=== PATIENT | female | born 1975 | race Caucasian/White ===

== ENCOUNTER → 2024-09-11 13:57 | Outpatient (CLI) | payer MEDICARE, MEDICAID, SELFPAY ==
[2024-09-11 14:54] LABS: Influenza A - CEPHEID Flu A NEGATIVE (NEGATIVE); Influenza B - CEPHEID Flu B NEGATIVE (NEGATIVE); Respiratory Syncytial Virus Negative (Negative)
[2024-09-11 15:11] LABS: COVID-19 CEPHEID 4-PLEX PCR Negative (Negative)
== END ==
PROVIDERS: Visit Provider Nurse Practitioner Family
DX: R05.1 Acute cough (principal); J02.9 Acute pharyngitis, unspecified
CPT/HCPCS: 0241U; 87070

== ENCOUNTER → 2024-09-11 14:14 | Outpatient (CLI) | payer MEDICARE, MEDICAID, SELFPAY ==
--- NOTE | 2024-09-11 14:17 | DI.RAD.S_ITS ---
PROCEDURE: XR CHEST 2V INDICATIONS: Cough TECHNIQUE: 2 views of the chest were acquired. COMPARISON: None. FINDINGS: Surgical changes and devices: None. Lungs and pleura: Lungs are clear. No pleural effusions or pneumothorax. Mediastinum: Mediastinal contours are normal. Heart size is normal. Bones and chest wall: No suspicious bony abnormalities. Soft tissues appear unremarkable. IMPRESSION: No acute cardiopulmonary abnormality is seen. Dictated by: Andrews Etienne M.D. on 09/12/2024 at 17:08 Approved by: Andrews Etienne M.D. on 09/12/2024 at 17:09
== END ==
PROVIDERS: Referring Provider Nurse Practitioner Family; Visit Provider Nurse Practitioner Family
DX: R05.9 Cough, unspecified (principal); R05.1 Acute cough; J02.9 Acute pharyngitis, unspecified
CPT/HCPCS: 0241U; 71046; 87070; 87077; 87147

== ENCOUNTER 2024-11-19 18:58 | Emergency (ER) | payer MEDICARE, MEDICAID, SELFPAY ==
[2024-11-19 19:25] VITALS: BP 132/82; PULSE 87; RESP 17; TEMP 37.1; O2SAT 98; BMI 29.4
[2024-11-19 21:13] LABS: Add Manual Diff / Slide Review NO; Hematocrit 40.1 % (36-46); Hemoglobin 14.0 g/dL (12.0-16.0); Lymphocytes Absolute Auto 2000 /uL (1100-4500); Mean Corpuscular HGB Conc 34.9 % (30-36); Mean Corpuscular Hemoglobin 33.6 PG (26-34); Mean Corpuscular Volume 96.3 fL (80-100); Platelet Count 279 X10^3/uL (150-400)
== END 2024-11-19 21:12 | disposition left against medical advice (07) ==
PROVIDERS: Emergency Provider Emergency Medicine
DX: R10.12 Left upper quadrant pain (principal); Z98.84 Bariatric surgery status
CPT/HCPCS: 85025; 99281

== ENCOUNTER 2024-11-20 08:52 | Emergency (ER) | payer MEDICARE, MEDICAID, SELFPAY ==
[2024-11-20] VITALS (9 sets, daily range): BP systolic 103–124; BP diastolic 58–83; PULSE 56–93; RESP 18; TEMP 36.6; O2SAT 92–99; BMI 29.7
--- NOTE | 2024-11-20 09:22 | DI.CT.S_ITS ---
PROCEDURE: CT ABDOMEN PELVIS W CON INDICATIONS: Left upper quadrant pain, gastric bypass Ronni, 60 lb wt loss TECHNIQUE: After the administration of intravenous contrast, axial sections acquired from the lung bases to the pubic symphysis. Coronal and sagittal reformats were performed. For radiation dose reduction, the following was used: automated exposure control, adjustment of mA and/or kV according to patient size. COMPARISON: None. FINDINGS: Image quality: Diagnostic. Lower Chest: No significant findings. ABDOMEN: Liver: No solid mass. Gallbladder: No radiopaque gallstones or wall thickening. Biliary ducts: No biliary dilation. Pancreas: No ductal dilation. Spleen: Size is within normal limits. Adrenal Glands: No adrenal nodules. Kidneys and Ureters: No hydronephrosis. No solid mass. No complex renal cystic lesion which requires follow up. Stomach and Bowel: Prior gastric surgery Peritoneum: No abnormal intraperitoneal fluid. No free air. Ventral Wall: No significant ventral hernia. Abdominal Nodes: No retroperitoneal or mesenteric adenopathy by size criteria. Vessels: Aorta and inferior vena cava are normal in size. PELVIS: Pelvic Organs: Unremarkable. Bladder: No bladder wall thickening, accounting for underdistention. Pelvic Nodes: No enlarged lymph nodes. Miscellaneous: Left inguinal hernia contains fat bowel involvement Bones: Degenerative disc disease and arthropathy noted in lower lumbar spine. IMPRESSION: No acute CT findings in the abdomen and pelvis status post gastric surgery. Incidental left inguinal hernia contains fat without bowel involvement Approved by: Poli Alvarado M.D. on 11/20/2024 at 9:44
--- NOTE | 2024-11-20 09:24 | ED.GENADULT ---
HPI - General Adult General Chief complaint: Abdominal Pain Stated complaint: Lower left side stomach pain Time Seen by Provider: 11/20/24 09:16 Source: patient Mode of arrival: Family Vehicle History of Present Illness HPI narrative: 49-year-old woman with a history of asthma, underwent gastric bypass in April is lost about 60 lb experiences chronic nausea and over the last week she has been having increasing left upper abdominal pain. She can not specifically localize it she has not had any change to her bowel habits. She is having enough nausea that she is having trouble keeping her protein shakes down. The pain is in the left upper quadrant when it happens she has difficulty finding a comfortable position and this morning is not abating describes pain as a 6/10. No change to her chronic nausea and she has not vomited. No fevers, cough, chills, chest pain or palpitation Related Data Home Medications ?Medication ?Instructions ?Recorded ?Confirmed albuterol sulfate 90 mcg/actuation inhalation 09/11/24 09/11/24 aerosol inhaler blood sugar diagnostic (OneTouch #10 ea 09/11/24 09/11/24 Verio test strips) fluticasone propionate 50 spray intranasal 09/11/24 09/11/24 mcg/actuation nasal spray,suspension gabapentin 300 mg capsule 300 mg PO 3XD 09/11/24 09/11/24 omeprazole 20 mg capsule,delayed 20 mg PO QAM 09/11/24 09/11/24 release ursodiol 250 mg tablet 250 mg PO BID 09/11/24 09/11/24 Previous Rx's ?Medication ?Instructions ?Recorded benzonatate 200 mg capsule 200 mg PO BID PRN cough #28 caps 09/11/24 amoxicillin 500 mg capsule 500 mg PO BID #20 caps 09/13/24 Allergies Allergy/AdvReac Type Severity Reaction Status Date / Time No Known Drug Allergies Allergy Verified 11/20/24 09:18 Review of Systems Review of Systems Narrative: Pertinent positive and negative findings as per HPI Patient History Surgical History (Updated 11/20/24 @ 09:26 by Tonya Holley MD) History of gastric bypass Social History Smoking Status: Former smoker Smoking Status: Former smoker tobacco type: cigarettes Alcohol type: wine Exam Initial Vital Signs Initial Vital Signs: Vital Signs Temperature 97.8 F 11/20/24 09:17 Pulse Rate 62 11/20/24 09:17 Respiratory Rate 18 11/20/24 09:17 Blood Pressure 119/83 11/20/24 09:17 Pulse Oximetry 99 11/20/24 09:17 Oxygen Delivery Method Room Air 11/20/24 09:17 General: Healthy appearing, uncomfortable but Able to give a complete and coherent history. Well-nourished well-developed HEENT: Moist mucous membranes, normal sclera with reactive pupils, Respiratory: Full and symmetrical air movement Cardiac: Regular rate and rhythm no murmurs no bruits Abdomen: Soft, tenderness in the left upper quadrant without rebound or guarding. No skin changes, no flank pain Skin: Warm and dry, no rashes Neurologic: Grossly neurologically intact with no obvious asymmetries or abnormalities Extremities: No trauma, well perfused Psych: Cooperative, appropriate insight and affect Course Orders Ordered: ED Orders 11/20/24 09:22 CT abdomen pelvis w con Stat EKG-12 Lead Stat 11/20/24 09:55 Complete Blood Count AUTO DIFF Stat Comprehensive Metabolic Panel Stat Lactate (Lactic Acid) Stat Lipase Stat Hydromorphone HCl (Hydromorphone Hcl 0.5 Mg/0.5 Ml Syringe) 0.5 mg IV Q15MIN PRN PRN Reason: Pain, Severe (7-10) Last Admin: 11/20/24 11:32 Dose: 0.5 mg Documented By: Sodium Chloride (Normal Saline 0.9%) 1,000 mls @ 150 mls/hr IV CONT CECE Last Admin: 11/20/24 09:56 Dose: 150 mls/hr Documented By: Discontinued Medications Hydromorphone HCl (Hydromorphone 1 Mg Inj) 0.5 mg IV Q15MIN PRN PRN Reason: Pain, Severe (7-10) Ondansetron HCl (Ondansetron 4 Mg/2 Ml Inj) 4 mg IV NOW ONE Stop: 11/20/24 11:17 Last Admin: 11/20/24 11:23 Dose: 4 mg Documented By: Oxycodone/Acetaminophen (Oxycodone/Acetaminophen 5/325 Tablet) 1 tab PO NOW ONE Stop: 11/20/24 09:23 Last Admin: 11/20/24 09:39 Dose: 1 tab Documented By: Vital Signs Vital signs: Vital Signs - 8 hr 11/20/24 09:17 Temperature 97.8 F Pulse Rate 62 Respiratory Rate 18 Blood Pressure 119/83 Pulse Oximetry 99 Oxygen Delivery Method Room Air Medical Decision Making Lab Data 11/20/24 09:55 11/20/24 09:55 Labs: Lab Results 11/20/24 Range/Units 09:55 WBC 7.2 (4.5-11.0) X10^3/uL RBC 4.02 (4.0-5.2) X10^6/uL Hgb 13.5 (12.0-16.0) g/dL Hct 38.3 (36-46) % MCV 95.3 (80-100) fL MCH 33.6 (26-34) PG MCHC 35.2 (30-36) % RDW 13.0 (11.6-14.8) % Plt Count 311 (150-400) X10^3/uL Neut % (Auto) 67.3 (50-75) % Lymph % (Auto) 20.5 L (25-40) % [place] % (Auto) 8.3 (3-14) % Eos % (Auto) 3.4 (2-4) % Baso % (Auto) 0.5 (0-2) % Neut # (Auto) 4800 (6850-3502) /uL Lymph # (Auto) 1500 (8106-8795) /uL [place] # (Auto) 600 (0-900) /uL Eos # (Auto) 200 (0-450) /uL Baso # (Auto) 0 (0-100) /uL Sodium 136 L (137-145) mmol/L Potassium 4.1 (3.4-5.1) mmol/L Chloride 106 (98-107) mmol/L Carbon Dioxide 23 (22-32) mmol/L BUN 12 (7-17) mg/dL Creatinine 0.50 L (0.52-1.04) mg/dL Estimated GFR > 60 (>60) mL/min BUN/Creatinine Ratio 24.0 H (6-22) Glucose 102 H (70-99) mg/dL Lactate < 0.5 L (0.7-2.1) mmol/L Calcium 9.1 (8.4-10.2) mg/dL Total Bilirubin 0.6 (0.2-1.3) mg/dL AST 21 (14-36) IU/L ALT 16 (<35) IU/L Alkaline Phosphatase 71 (38-126) U/L Total Protein 7.2 (6.3-8.2) g/dL Albumin 4.2 (3.5-5.0) g/dL Globulin 3.0 (1.7-4.1) g/dL Albumin/Globulin Ratio 1.4 (1.0-2.8) Lipase 97 (23-300) U/L Urine Dip Bedside Urine Glucose Negative Bedside Urine Bilirubin + 1 Bedside Urine Ketone - Negative Urine Specific [place] 1.015 Bedside Urine Occult Blood - Negative Bedside Urine pH 6.0 Bedside Urine Protein ++ 100 Bedside Urine Urobilinogen - Negative Bedside Urine Nitrite - Negative Bedside Urine Leukocytes - Negative Esterase Point of care testing: Urine Dip Bedside Urine Glucose Negative Bedside Urine Bilirubin + 1 Bedside Urine Ketone - Negative Urine Specific [place] 1.015 Bedside Urine Occult Blood - Negative Bedside Urine pH 6.0 Bedside Urine Protein ++ 100 Bedside Urine Urobilinogen - Negative Bedside Urine Nitrite - Negative Bedside Urine Leukocytes - Negative Esterase Imaging Data CT scan - abdomen/pelvis: Radiologist's Impression: PROCEDURE: CT ABDOMEN PELVIS W CON INDICATIONS: Left upper quadrant pain, gastric bypass Ronni, 60 lb wt loss TECHNIQUE: After the administration of intravenous contrast, axial sections acquired from the lung bases to the pubic symphysis. Coronal and sagittal reformats were performed. For radiation dose reduction, the following was used: automated exposure control, adjustment of mA and/or kV according to patient size. COMPARISON: None. FINDINGS: Image quality: Diagnostic. Lower Chest: No significant findings. ABDOMEN: Liver: No solid mass. Gallbladder: No radiopaque gallstones or wall thickening. Biliary ducts: No biliary dilation. Pancreas: No ductal dilation. Spleen: Size is within normal limits. Adrenal Glands: No adrenal nodules. Kidneys and Ureters: No hydronephrosis. No solid mass. No complex renal cystic lesion which requires follow up. Stomach and Bowel: Prior gastric surgery Peritoneum: No abnormal intraperitoneal fluid. No free air. Ventral Wall: No significant ventral hernia. Abdominal Nodes: No retroperitoneal or mesenteric adenopathy by size criteria. Vessels: Aorta and inferior vena cava are normal in size. PELVIS: Pelvic Organs: Unremarkable. Bladder: No bladder wall thickening, accounting for underdistention. Pelvic Nodes: No enlarged lymph nodes. Miscellaneous: Left inguinal hernia contains fat bowel involvement Bones: Degenerative disc disease and arthropathy noted in lower lumbar spine. IMPRESSION: No acute CT findings in the abdomen and pelvis status post gastric surgery. Incidental left inguinal hernia contains fat without bowel involvement Approved by: Poli Alvarado M.D. on 11/20/2024 at 9:44 MDM Narrative Medical decision making narrative: CC: Left upper quadrant pain worsening over the last week Complicating co-morbidities: Gastric bypass with a approximately 60 lb weight loss recently. Data collected from: patient Differential considered: Pancreatitis, internal hernia, partial bowel obstruction, constipation Exam documented above, pertinent findings include: Alert and appropriate, she is tender in the left upper quadrant no rebound or guarding Lab Test results independently reviewed as above. Pertinent findings: CBC is unremarkable Chemistries are reassuring, normal creatinine. Normal liver studies Lipase is normal Independently reviewed EKG: EKG shows sinus Eric at a rate of 49 with no acute ischemic changes Imaging studies independently reviewed: CT scan of the abdomen and pelvis does not show pancreatic abnormalities, lower lung abnormalities no significant obstruction or other explanation for her left-sided abdominal pain There is a moderate amount of stool throughout the colon, not excessive but maybe contributing to [place] Discussion: 49-year-old woman comes in with left-sided abdominal pain. She is re-examined, does not have an acute surgical abdomen. Reviewed results of very normal lab findings as well as unremarkable CT scan with her. Suggested that constipation may be contributing to her pain. She notes that has been an issue before and she has not been using any of her bowel regimen medications recently. She has stool softeners as well as laxatives available at home. Currently no evidence of infection, obstruction, kidney problems, pancreatic issues and no indication for hospitalization at this time. Discharge Plan Departure Patient Disposition: Home Clinical Impression: Abdominal pain Qualifiers: Abdominal location: unspecified location Qualified Code(s): R10.9 - Unspecified abdominal pain Constipation Qualifiers: Constipation type: unspecified constipation type Qualified Code(s): K59.00 - Constipation, unspecified Instructions: DI for Constipation Activity Restrictions/Additional Instructions: Thank you for coming in today I am seeing no sign of infection, kidney problem, pancreatitis, lower lobe pneumonia or bowel obstruction. Your blood work was very reassuring. I do not have a life-threatening explanation for your abdominal pain and there was no need for hospitalization or further workup today. In looking at your CT scan you still have quite a bit of stool throughout your entire colon. This may be contributing to your pain. I would recommend a couple of doses of MiraLax along with a laxative today and seeing if the pain improves after a very large bowel movement. If you are having new symptoms, fevers, additional complaints, returning to the emergency department would be appropriate. Prescriptions: No Action fluticasone propionate 50 mcg/actuation spray,suspension intranasal albuterol sulfate 90 mcg/actuation HFA aerosol inhaler inhalation omeprazole 20 mg capsule,delayed release(DR/EC) 20 mg PO QAM (DME) OneTouch Verio test strips Strip See Rx Instructions .ROUTE DAILY Qty: 10 Rx Instructions: As directed ursodiol 250 mg tablet 250 mg PO BID gabapentin 300 mg capsule 300 mg PO 3XD benzonatate 200 mg capsule 200 mg PO BID PRN (Reason: cough) Qty: 28 0RF amoxicillin 500 mg capsule 500 mg PO BID Qty: 20 0RF Stand Alone Forms: Patient Portal/API
[2024-11-20] MEDS: OXYCODONE/ACETAMINOPHEN 5/325 TABLET 1 TAB PO (09:39)
[2024-11-20] MEDS: SODIUM CHLORIDE 0.9% 1,000 ML 150 ML IV (09:56)
[2024-11-20 10:01] LABS: Add Manual Diff / Slide Review NO; Hematocrit 38.3 % (36-46); Hemoglobin 13.5 g/dL (12.0-16.0); Lymphocytes Absolute Auto 1500 /uL (1100-4500); Mean Corpuscular HGB Conc 35.2 % (30-36); Mean Corpuscular Hemoglobin 33.6 PG (26-34); Mean Corpuscular Volume 95.3 fL (80-100); Platelet Count 311 X10^3/uL (150-400)
[2024-11-20 10:17] LABS: Alanine Aminotransferase 16 IU/L (<35); Albumin 4.2 g/dL (3.5-5.0); Albumin Globulin Ratio 1.4 (1.0-2.8); Alkaline Phosphatase 71 U/L (38-126); Blood Urea Nitrogen 12 mg/dL (7-17); Calcium 9.1 mg/dL (8.4-10.2); Carbon Dioxide 23 mmol/L (22-32); Chloride 106 mmol/L (98-107); Estimated Glomerular Filt Rate > 60 mL/min (>60); Globulin 3.0 g/dL (1.7-4.1); Glucose 102 mg/dL (70-99); HEMOLYSIS < 15 (0-50); Lipase 97 U/L (23-300); Potassium 4.1 mmol/L (3.4-5.1); Sodium 136 mmol/L (137-145); Total Protein 7.2 g/dL (6.3-8.2)
[2024-11-20 10:20] LABS: Lactate (Lactic Acid) < 0.5 mmol/L (0.7-2.1)
--- NOTE | 2024-11-20 10:36 | EKG_ITS ---
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
[2024-11-20] MEDS: ONDANSETRON 4 MG/2 ML INJ IV (11:23)
== END 2024-11-20 13:03 | disposition home or self-care (01) ==
PROVIDERS: Emergency Provider Emergency Medicine
DX: R10.12 Left upper quadrant pain (principal); K59.00 Constipation, unspecified; R00.1 Bradycardia, unspecified; Z98.84 Bariatric surgery status
CPT/HCPCS: 36415; 74177; 80053; 81003; 83605; 83690; 85025; 93005; 96361; 96374; 96375; 99284; J1171; J2405; Q9967

== ENCOUNTER 2025-02-15 14:05 | Emergency (ER) | payer MEDICARE, MEDICAID, SELFPAY ==
[2025-02-15 14:10] VITALS: BP 144/83; PULSE 79; RESP 16; TEMP 36.6; O2SAT 99; BMI 28.1
--- NOTE | 2025-02-15 14:13 | DI.RAD.S_ITS ---
PROCEDURE: XR FINGER LT MIN 2V INDICATIONS: pain, swelling TECHNIQUE: AP hand, 2 views of the left 2nd finger(s) acquired. COMPARISON: None. FINDINGS: Bones: No fractures or dislocations. No suspicious bony lesions. Proximal row carpectomy has been performed. Soft tissues: Soft tissue swelling centered at the 2nd PIP joint. No radiopaque foreign bodies or concerning soft tissue calcifications. IMPRESSION: 2nd finger soft tissue swelling. No acute bony abnormality. Dictated by: Leslie Steele M.D. on 02/15/2025 at 15:14 Approved by: Leslie Steele M.D. on 02/15/2025 at 15:16
--- NOTE | 2025-02-15 16:46 | ED.UPPEXIN ---
HPI - Extremity Injury (Upper) <Christopher Urrutia PA-C - Last Filed: 02/15/25 16:59> General Chief Complaint: Extremity Injury, Upper Stated Complaint: left index finger pain x 1 day Time Seen by Provider: 02/15/25 14:30 Source: patient Mode of arrival: Ambulatory History of Present Illness HPI narrative: 49-year-old female with past medical history of gastric bypass presents to the ED with 1 day of left index finger pain. Patient does not recall any injury or insect bite. Pain started rn emergency room, and pain is localized to the PIP of the left index finger.. No numbness, tingling, weakness. No fever, chills. Related Data Home Medications ?Medication ?Instructions ?Recorded ?Confirmed albuterol sulfate 90 mcg/actuation inhalation 09/11/24 12/23/24 aerosol inhaler blood sugar diagnostic (OneTouch #10 ea 09/11/24 12/23/24 Verio test strips) fluticasone propionate 50 spray intranasal 09/11/24 12/23/24 mcg/actuation nasal spray,suspension gabapentin 300 mg capsule 300 mg PO 3XD 09/11/24 12/23/24 omeprazole 20 mg capsule,delayed 20 mg PO QAM 09/11/24 12/23/24 release ursodiol 250 mg tablet 250 mg PO BID 09/11/24 12/23/24 azelastine 137 mcg (0.1 %) nasal 1 spray intranasal BID 12/23/24 12/23/24 spray methylprednisolone 4 mg tablets in mg PO DIRECTED 12/23/24 12/23/24 a dose pack Previous Rx's ?Medication ?Instructions ?Recorded benzonatate 200 mg capsule 200 mg PO BID PRN cough #28 caps 09/11/24 amoxicillin 500 mg capsule 500 mg PO BID #20 caps 09/13/24 doxycycline hyclate 100 mg capsule 100 mg PO BID #14 caps 12/23/24 mupirocin 2 % topical ointment 1 applic topical TID #22 grams 12/23/24 Allergies Allergy/AdvReac Type Severity Reaction Status Date / Time NSAIDS (Non-Steroidal Allergy gastric Verified 02/15/25 14:10 Anti-Inflamma bypass 2024 Review of Systems <Christopher Urrutia PA-C - Last Filed: 02/15/25 16:59> Constitutional Constitutional: Denies chills, Denies fatigue, Denies fever(s), Denies frequent falls, Denies lethargy and Denies weakness Eyes Eyes: Denies change in vision, Denies eye discharge, Denies irritation and Denies loss of vision ENT Ears, Nose, Mouth, and Throat: Denies change in voice, Denies dizziness, Denies neck pain, Denies sore throat and Denies throat swelling Cardiovascular Cardiovascular: Denies chest pain, Denies irregular heart rhythm, Denies lightheadedness, Denies palpitations, Denies dyspnea, Denies dyspnea on exertion and Denies orthopnea Respiratory Respiratory: Denies cough, Denies dyspnea, Denies dyspnea on exertion and Denies wheezing Gastrointestinal Gastrointestinal: Denies abdominal pain, Denies change in bowel habits, Denies diarrhea, Denies nausea and Denies vomiting Musculoskeletal Musculoskeletal: Denies neck pain and Denies numbness Comments: Left index finger swelling, pain Integumentary/Breasts Skin/Breast: Denies pruritus, Denies erythema, Denies rash and Denies wounds Neurologic Neurologic: Denies behavioral changes, Denies confusion, Denies dizziness, Denies frequent falls, Denies loss of vision, Denies numbness and Denies weakness Psychiatric Psychiatric: Denies anxiety, Denies behavioral changes, Denies confusion, Denies depression, Denies homicidal ideation and Denies suicidal ideation Endocrine Endocrine: Denies fatigue, Denies flushing and Denies palpitations Hematologic/Lymphatic Hematologic/Lymphatic: Denies easy bruising Allergic/Immunologic Allergic/Immunologic: Denies urticaria, Denies throat swelling and Denies wheezing Patient History <Christopher Urrutia PA-C - Last Filed: 02/15/25 16:59> Surgical History History of gastric bypass tobacco type: cigarettes Alcohol type: wine Exam <Christopher Urrutia PA-C - Last Filed: 02/15/25 16:59> Narrative Exam Narrative: Const General:?cooperative, healthy appearing and comfortable [facility] Head:?normal to inspection Ears:?hearing grossly normal bilaterally Nose:?external nose normal Face and sinus:?normal facial exam and sinuses nontender Mouth:?oral mucosae normal Throat:?posterior oropharynx normal Eyes General:?appearance normal, both eyes and all related structures Neck Neck:?normal visual inspection and no lymphadenopathy noted Resp Effort & Inspection:?normal respiratory effort Auscultation:?clear to auscultation bilaterally Cardio Rate:?regular rate Rhythm:?regular rhythm Musculoskeletal The PIPJ joint of the left index finger appears swollen and mildly erythematous. Range of motion is limited, however joint is not stiff and immobile. Neurovascularly intact. Neuro General:?patient alert, patient awake and patient oriented x3 Initial Vital Signs Initial Vital Signs: Vital Signs Temperature 97.9 F 02/15/25 14:10 Pulse Rate 79 02/15/25 14:10 Respiratory Rate 16 02/15/25 14:10 Blood Pressure 144/83 H 02/15/25 14:10 Pulse Oximetry 99 02/15/25 14:10 Oxygen Delivery Method Room Air 02/15/25 14:10 <Clarisse Beth DO - Last Filed: 02/15/25 23:29> Initial Vital Signs Initial Vital Signs: Vital Signs Temperature 97.9 F 02/15/25 14:10 Pulse Rate 79 02/15/25 14:10 Respiratory Rate 16 02/15/25 14:10 Blood Pressure 144/83 H 02/15/25 14:10 Pulse Oximetry 99 02/15/25 14:10 Oxygen Delivery Method Room Air 02/15/25 14:10 Course <Christopher Urrutia PA-C - Last Filed: 02/15/25 16:59> Orders Ordered: ED Orders 02/15/25 14:13 XR finger LT min 2V Stat Vital Signs Vital signs: Vital Signs - 8 hr 02/15/25 14:10 Temperature 97.9 F Pulse Rate 79 Respiratory Rate 16 Blood Pressure 144/83 H Pulse Oximetry 99 Oxygen Delivery Method Room Air <DO Adiel Syed Last Filed: 02/15/25 23:29> Orders Ordered: ED Orders 02/15/25 14:13 XR finger LT min 2V Stat Vital Signs Vital signs: Vital Signs - 8 hr 02/15/25 14:10 Temperature 97.9 F Pulse Rate 79 Respiratory Rate 16 Blood Pressure 144/83 H Pulse Oximetry 99 Oxygen Delivery Method Room Air MDM - Extremity Injury (Upper) <HERMINIO Ndiaye Last Filed: 02/15/25 16:59> MDM Narrative Medical decision making narrative: 49-year-old female with past medical history of gastric bypass presents to the ED with 1 day of left index finger pain. X-ray was obtained which shows no acute bony abnormality. There is 2nd finger soft tissue swelling at the 2nd PIP joint. There is some limited range of motion of the 2nd PIP, however not concerning for septic joint. Presentation most consistent with a musculoskeletal sprain/strain versus a insect bite. Supportive measures discussed with patient. Patient verbalized understanding. Medical records reviewed: Yes Discharge Plan Departure Patient Disposition: Home Clinical Impression: Finger pain Qualifiers: Laterality: left Qualified Code(s): M79.645 - Pain in left finger(s) Instructions: DI for Finger Sprain Activity Restrictions/Additional Instructions: You were evaluated in the emergency department for finger pain. Your x-ray was normal. It appears that you either have an insect bite or finger sprain. You may continue to ice the injury for the 1st 24 hours, then apply heat. You may take Tylenol for the pain. Please follow-up with your PCP as soon as possible. Return to the ED if you have worsening symptoms, numbness, tingling, weakness. Prescriptions: No Action fluticasone propionate 50 mcg/actuation spray,suspension intranasal albuterol sulfate 90 mcg/actuation HFA aerosol inhaler inhalation omeprazole 20 mg capsule,delayed release(DR/EC) 20 mg PO QAM (DME) OneTouch Verio test strips Strip See Rx Instructions .ROUTE DAILY Qty: 10 Rx Instructions: As directed ursodiol 250 mg tablet 250 mg PO BID gabapentin 300 mg capsule 300 mg PO 3XD benzonatate 200 mg capsule 200 mg PO BID PRN (Reason: cough) Qty: 28 0RF azelastine 137 mcg (0.1 %) spray,non-aerosol 1 spray intranasal BID methylprednisolone 4 mg tablets,dose pack PO DIRECTED doxycycline hyclate 100 mg capsule 100 mg PO BID Qty: 14 0RF mupirocin 2 % ointment 1 applic topical TID Qty: 22 0RF amoxicillin 500 mg capsule 500 mg PO BID Qty: 20 0RF Referrals: Jonn Olson MD [Primary Care Provider, Internal Medicine] Stand Alone Forms: Patient Portal/API ED Sign-out <Clarisse Beth DO - Last Filed: 02/15/25 23:29> Cosign ED Attending Cosignature Attestation: I was immediately available in the department for consultation.
== END 2025-02-15 16:55 | disposition home or self-care (01) ==
PROVIDERS: Emergency Provider Student in an Organized Health Care Education/Training Program; PCP Internal Medicine
DX: M79.645 Pain in left finger(s) (principal)
CPT/HCPCS: 73140; 99281; 99283